=== PATIENT | female | born 1955 | race Caucasian/White ===

== ENCOUNTER 2016-04-23 09:08 | Day surgery (SDC) | payer BC ==
--- NOTE | ~2016-04-23 | EGD ---
EGD REPORT [facility] [address] [address] NAME: NADEGE SHEA : [birth year] STATUS : REG [facility]#: [id number] AGE: 60 ADM/REG DATE : 04/23/16 MR#: [id number] REPORT SERV DATE: 04/23/16 DICTATED BY: BA PETERSON DATE: 04/23/16 REPORT STATUS : Draft TRANSCRIBED BY: [facility] DATE: 04/23/16 Endoscopy Center Patient Name: Nadege Shea Date of : 1955 Attending MD: BA PETERSON MD Procedure Date No Time: 04/23/2016 Procedure: Upper GI endoscopy Indications: Iron deficiency anemia Referring MD: KOURTNEY PITT III Medicines: as per anesthesia Complications: No immediate complications. Procedure: Pre-Anesthesia Assessment: - ASA Grade Assessment: III - A patient with severe systemic disease. After obtaining informed consent, the endoscope was passed under direct vision. Throughout the procedure, the patient's blood pressure, pulse, and oxygen saturations were monitored continuously. The GIF [id number] was introduced through the mouth, and advanced to the third part of duodenum. The upper GI endoscopy was accomplished without difficulty. The patient tolerated the procedure well. Findings: The examined esophagus was normal. Localized mild inflammation characterized by erythema was found in the gastric antrum. Biopsies were taken with a cold forceps for histology. A few sessile polyps were found in the gastric body. Biopsies were taken with a cold forceps for histology. The cardia and gastric fundus were normal on retroflexion. The examined duodenum was normal. Biopsies were taken with a cold forceps for histology. Impression: - Normal esophagus. - Gastritis. Biopsied. - A few gastric polyps. Biopsied. - Normal examined duodenum. Biopsied. Recommendation: - Await pathology results. Procedure Code(s): --- Professional --- 15144, Esophagogastroduodenoscopy, flexible, transoral; with biopsy, single or multiple Diagnosis Code(s): --- Professional --- EGD REPORT [address] [place]. [address] NAME: NADEGE SHEA : [birth year] STATUS : REG [facility] PAT#: [id number] AGE: 60 ADM/REG DATE : 04/23/16 MR#: [id number] REPORT SERV DATE: 04/23/16 DICTATED BY: BA PETERSON. DATE: 04/23/16 REPORT STATUS : Draft TRANSCRIBED BY: [employer] DATE: 04/23/16 K29.70, Gastritis, unspecified, without bleeding K31.7, Polyp of stomach and duodenum D50.9, Iron deficiency anemia, unspecified CPT copyright 2013 [employer]. All rights reserved. The codes documented in this report are preliminary and upon land leveler review may be revised to meet current compliance requirements. BA PETERSON MD 04/23/2016 11:39 AM This report has been signed electronically. Number of Addenda: 0 Note Initiated On: 04/23/2016 11:20 AM Scope Withdrawal Time 0 hours 0 minutes [address] [place] [address] [place] [address]
--- NOTE | ~2016-04-23 | EGD ---
EGD REPORT [facility] [address] [place] [address] NAME: NADEGE SHEA : [birth year] STATUS : REG [facility]#: [id number] AGE: 60 ADM/REG DATE : 04/23/16 MR#: [id number] REPORT SERV DATE: 04/23/16 DICTATED BY: BA PETERSON DATE: 04/23/16 REPORT STATUS : Draft [facility]ANSCRIBED BY: [facility] DATE: 04/23/16 Endoscopy Center Patient Name: Nadege Shea Date of : 1955 Attending MD: BA PETERSON MD Procedure Date No Time: 04/23/2016 Procedure: Colonoscopy Indications: Iron deficiency anemia Referring MD: KOURTNEY PITT III Medicines: as per anesthesia Complications: No immediate complications. Procedure: Pre-Anesthesia Assessment: - ASA Grade Assessment: III - A patient with severe systemic disease. After I obtained informed consent, the scope was passed under direct vision. Throughout the procedure, the patient's blood pressure, pulse, and oxygen saturations were monitored continuously. The PCF [id number] was introduced through the anus and advanced to the cecum, identified by appendiceal orifice and ileocecal valve. The colonoscopy was performed without difficulty. The patient tolerated the procedure. The quality of the bowel preparation was fair. Findings: The perianal and digital rectal examinations were normal. A few small-mouthed diverticula were found in the sigmoid colon and in the descending colon. Internal hemorrhoids were found during endoscopy and were mild. Impression: - Diverticulosis in the sigmoid colon and in the descending colon. - Internal hemorrhoids. Recommendation: - Repeat colonoscopy in 10 years for surveillance. Procedure Code(s): --- Professional --- 59384, Colonoscopy, flexible, proximal to splenic flexure; diagnostic, with or without collection of specimen(s) by brushing or washing, with or without colon decompression (separate procedure) Diagnosis Code(s): --- Professional --- K64.8, Other hemorrhoids K57.30, Diverticulosis of large intestine without EGD REPORT [place] [address] [facility] [address] NAME: NADEGE SHEA : [birth year] STATUS : REG [facility] PAT#: [id number] AGE: 60 ADM/REG DATE : 04/23/16 MR#: [id number] REPORT SERV DATE: 04/23/16 DICTATED BY: BA PETERSON. DATE: 04/23/16 REPORT STATUS : Draft TRANSCRIBED BY: [employer] DATE: 04/23/16 perforation or abscess without bleeding D50.9, Iron deficiency anemia, unspecified CPT copyright 2013 [employer]. All rights reserved. The codes documented in this report are preliminary and upon black leather buffer review may be revised to meet current compliance requirements. BA PETERSON MD 04/23/2016 12:06 PM This report has been signed electronically. Number of Addenda: 0 Note Initiated On: 04/23/2016 11:18 AM Scope Withdrawal Time 0 hours 9 minutes 41 seconds [address] [address]
[~2016-04-23 09:08] MED LIST: ACTOS30 PO; ASAB PO; BEN25 PO; BENICAR HCT1 TAB PO; CALTRA600D PO; COQ-1010 MG PO; ESTRACE VAGIN42.5 GM V; FLONASE NAS; GLUCCHONDR PO; GLUCPH PO; LOP25 PO; MAGOX4 PO; MULTIPLE VIT PO; NEUR300 PO; OLMESARTAN-HCTZ PO; PRAVACHOL40 MG PO; Tylenol Arthritis PO; ULTRAM50 PO; VITAMIN D31000 UNIT PO; [UNRECOGNIZED DRUG - OTHER]
== END 2016-04-23 23:59 | disposition home or self-care (01) ==
LOC: DMU 09:08
PROVIDERS: Internal Medicine Gastroenterology
PROC: 0DJD8ZZ Inspection of Lower Intestinal Tract, Via Natural or Artificial Opening Endoscopic (ICD-10-PCS; 2016-04-23)
PROC: 0DB98ZX Excision of Duodenum, Via Natural or Artificial Opening Endoscopic, Diagnostic (ICD-10-PCS; principal; 2016-04-23 10:30)
PROC: 0DB68ZX Excision of Stomach, Via Natural or Artificial Opening Endoscopic, Diagnostic (ICD-10-PCS; 2016-04-23 10:30)
DX: K31.7 Polyp of stomach and duodenum (principal); D50.9 Iron deficiency anemia, unspecified; K64.8 Other hemorrhoids; K57.30 Diverticulosis of large intestine without perforation or abscess without bleeding; I10 Essential (primary) hypertension; E11.9 Type 2 diabetes mellitus without complications; M54.5 Low back pain; M54.30 Sciatica, unspecified side; Z79.82 Long term (current) use of aspirin; Z79.890 Hormone replacement therapy; Z79.84 Long term (current) use of oral hypoglycemic drugs; Z79.51 Long term (current) use of inhaled steroids; Z79.899 Other long term (current) drug therapy
CPT/HCPCS: 82962; 88305; A9270-GY